=== PATIENT | female | born 1965 | race Native Hawaiian/Other Pacific Islander ===

== ENCOUNTER 2020-02-07 10:46 | Outpatient (CLI) | payer OTHER, SELFPAY | END 2020-02-07 10:47 | disposition home or self-care (01) | LOC: ANHLAB 10:49 | PROVIDERS: Visit Provider Internal Medicine Critical Care Medicine | DX: J45.909 Unspecified asthma, uncomplicated (principal) | CPT/HCPCS: 36415; 82785; 86003 ==

== ENCOUNTER 2020-03-21 07:27 | Outpatient (CLI) | payer OTHER, SELFPAY ==
--- NOTE | 2020-03-23 12:32 | WPDPFTINT ---
PFT Interpretation PFT Interpretation: This PFT met all criteria for ATS standards and reproducibility FEV/FVC post bronchodilator 81% FEV1 102% FVC 96% TLC 92% RV 77% RV/TLC 31% DLCO 86% when adjusted for alveolar volume but not adjusted for hemoglobin Flow volume loops were normal Impression: Normal PFT. Clinical correlation is advised.
== END 2020-03-21 07:28 | disposition home or self-care (01) ==
PROVIDERS: Visit Provider Internal Medicine Critical Care Medicine
DX: J45.909 Unspecified asthma, uncomplicated (principal)
CPT/HCPCS: 94060; 94726; 94729